=== PATIENT | male | born 1975 | race Caucasian/White ===

== ENCOUNTER 2024-05-04 12:42 | Emergency (ER) | payer BC, SELFPAY ==
[2024-05-04 12:44] VITALS: BP 202/123
[2024-05-04 13:07] VITALS: BP 186/105
[2024-05-04 13:10] LABS: Urine Albumin Trace (Neg - Trace); Urine Bilirubin 1+ (Negative); Urine Character Clear (Clear); Urine Color Yellow; Urine Glucose Negative (Negative); Urine Ketone Trace (Negative); Urine Leukocyte Trace (Negative); Urine Nitrite Negative (Negative); Urine Occult Blood 2+ (Negative); Urine Urobilinogen Negative (Neg - 1+)
--- NOTE | 2024-05-04 13:10 | ED.GENMED ---
History of Present Illness
<Dafne Diana PA-C - Last Filed: 05/04/24 19:33>
General
Chief Complaint: Flank Pain
Source: patient
Exam Limitations: none
Time Seen by Provider: 05/04/24 12:49
Nursing documentation reviewed up to this point in time: agreed with
History of Present Illness
History of Present Illness:
48-year-old male presents to the emergency department via EMS for evaluation of left flank pain. Patient states symptoms initially started 3 days ago and have been intermittent. Patient reports a sharp pain in his left lower back rating around his
left side to his left abdomen. Patient does report associated nausea but denies any episodes of vomiting. Patient has noticed some urinary frequency over the past few days but denies any hematuria or dysuria. Patient was seen in [facility]
yesterday where only lab work was performed. They did mention that his kidney function was elevated and gave him some fluids. Patient presents today due to persistent and worsening left flank pain.
Patient denies any fever, chills, chest pain, shortness of breath. Patient denies any constipation or diarrhea. Patient denies any known history of kidney stones.
Patient does have an appointment with a new primary care doctor this coming .
Review of Systems
<Dafne Diana PA-C - Last Filed: 05/04/24 19:33>
Review of Systems
Allergies reviewed?: Yes
All Other Systems: ROS reviewed and negative except as documented in HPI and ROS
Phy Exam
<Dafne Diana PA-C - Last Filed: 05/04/24 19:33>
Physical Exam
Physical Exam:
Vitals: Hypertensive on arrival, otherwise vital signs stable. Afebrile
General: Patient is well appearing, mild distress due to pain. Nontoxic-appearing
Skin: Warm and dry, no rashes or lesions
Head: Normocephalic, atraumatic
Eyes: Sclera nonicteric. EOMs intact. No nystagmus.
Throat: Protecting airway
Neck: Normal ROM, no cervical spine tenderness, no meningismus
Cardiac: Regular rate and rhythm, no murmurs.
Pulm: Normal respiratory effort, no wheezes, rales, rhonchi heard on exam.
Abdomen: Abdomen soft. Mild abdominal tenderness in left lower quadrant/left flank without any rebound tenderness or guarding. No CVA tenderness bilaterally
Extremities: No evidence of cyanosis or edema. Great distal pulses
Neuro: AAOx3. CN II-XII intact. No focal neurologic deficits.
Psychiatric: Normal affect.
Course
<Dafne Diana PA-C - Last Filed: 05/04/24 19:33>
Orders/Labs/Results
Orders:
Orders
05/04/24 12:52
Urinalysis Reflex To Culture Urgent
Date Specimen was Collected: 05/04/24
Time Specimen was Collected: 12:46
Urine Microscopic Reflex Cult Urgent
05/04/24 13:06
CMP [Comprehensive Metabolic Panel] Urgent
Complete Blood Count/With Diff Urgent
05/04/24 13:09
CT Abd/pel Without Iv Or Oral Urgent
Comment:
Reason For Exam: L flank pain, + nausea, urinary frequency
0.9% Sodium Chloride 1000 ml [Nss] 1,000 ml IV BOLUS
Ketorolac [Toradol] 15 mg IV NOW STA
Ondansetron Injectable [Zofran] 4 mg IV NOW STA
05/04/24 14:42
Tamsulosin [Flomax] 0.4 mg PO NOW STA
Abnormal Lab Results
05/04/24 05/04/24
12:52 13:06
RBC 6.21 H 10^6/uL
(4.70-6.10)
Hgb 18.2 H g/dL
(13.0-18.0)
Lymphocytes % 19.4 L %
(20.5-51.1)
BUN 21 H mg/dl
(9-20)
Creatinine 1.5 H mg/dL
(0.7-1.3)
Glucose 111 H mg/dl
(70-99)
Total Bilirubin 1.5 H mg/dl
(0.2-1.3)
ALT 83 H U/L
(0-50)
Urine Ketones Trace A
(Negative)
Ur Occult Blood Reflex 2+ A
(Negative)
Urine Bilirubin 1+ A
(Negative)
Leukocyte Esterase Rfl Trace A
(Negative)
Urine RBC 3-6 A /HPF
(0-2)
05/04/24 13:06
05/04/24 13:06
Vital Signs
Initial and Last Documented VS:
Initial Vital Signs
Temp Pulse Resp BP Pulse Ox
97.7 F 78 18 202/123 99
05/04/24 12:44 05/04/24 12:44 05/04/24 12:44 05/04/24 12:44 05/04/24 12:44
Last Documented Vital Signs
Temp Pulse Resp BP Pulse Ox
97.7 F 78 16 160/102 99
05/04/24 12:44 05/04/24 12:44 05/04/24 14:51 05/04/24 14:51 05/04/24 12:44
<Issa Peralta, DO - Last Filed: 05/04/24 22:41>
Orders/Labs/Results
Orders:
Orders
05/04/24 12:52
Urinalysis Reflex To Culture Urgent
Date Specimen was Collected: 05/04/24
Time Specimen was Collected: 12:46
Urine Microscopic Reflex Cult Urgent
05/04/24 13:06
CMP [Comprehensive Metabolic Panel] Urgent
Complete Blood Count/With Diff Urgent
05/04/24 13:09
CT Abd/pel Without Iv Or Oral Urgent
Comment:
Reason For Exam: L flank pain, + nausea, urinary frequency
0.9% Sodium Chloride 1000 ml [Nss] 1,000 ml IV BOLUS
Ketorolac [Toradol] 15 mg IV NOW STA
Ondansetron Injectable [Zofran] 4 mg IV NOW STA
05/04/24 14:42
Tamsulosin [Flomax] 0.4 mg PO NOW STA
Abnormal Lab Results
05/04/24 05/04/24
12:52 13:06
RBC 6.21 H 10^6/uL
(4.70-6.10)
Hgb 18.2 H g/dL
(13.0-18.0)
Lymphocytes % 19.4 L %
(20.5-51.1)
BUN 21 H mg/dl
(9-20)
Creatinine 1.5 H mg/dL
(0.7-1.3)
Glucose 111 H mg/dl
(70-99)
Total Bilirubin 1.5 H mg/dl
(0.2-1.3)
ALT 83 H U/L
(0-50)
Urine Ketones Trace A
(Negative)
Ur Occult Blood Reflex 2+ A
(Negative)
Urine Bilirubin 1+ A
(Negative)
Leukocyte Esterase Rfl Trace A
(Negative)
Urine RBC 3-6 A /HPF
(0-2)
05/04/24 13:06
05/04/24 13:06
Vital Signs
Initial and Last Documented VS:
Initial Vital Signs
Temp Pulse Resp BP Pulse Ox
97.7 F 78 18 202/123 99
05/04/24 12:44 05/04/24 12:44 05/04/24 12:44 05/04/24 12:44 05/04/24 12:44
Last Documented Vital Signs
Temp Pulse Resp BP Pulse Ox
97.7 F 78 16 160/102 99
05/04/24 12:44 05/04/24 12:44 05/04/24 14:51 05/04/24 14:51 05/04/24 12:44
<Dafne Diana PA-C - Last Filed: 05/04/24 19:33>
MDM/Problems Addressed
Differential Diagnosis Includes:
Not limited to: Ureteral stone, obstructing stone, ANITA, pyelonephritis, UTI, diverticulitis
MDM/Problems Addressed:
48-year-old male presenting with 3 days of left flank pain and mild nausea. No fever, chills, dysuria. No history of kidney stones in the past. Seen in different emergency department yesterday where he had lab work which showed mild renal
insufficiency although no imaging performed. Patient was discharged with instructions to stay well-hydrated. Vital signs upon arrival here show significant hypertension�although I do feel this is likely due to patient's level of discomfort. Will
recheck after pain medication. Otherwise vital signs stable, patient is afebrile. Physical exam as above. Patient is well-appearing, in mild distress due to pain although nontoxic. Patient is very mild left lower quadrant reproducible
tenderness. No CVA tenderness. Heart regular rate rhythm. Lungs clear bilaterally. Will check basic labs, urinalysis. Will obtain CT abdomen/pelvis. Symptoms consistent with likely kidney stone. Will give fluids, Toradol, Zofran. Will
closely monitor and reassess.
Following Toradol administration�patient reports almost complete resolution of pain. His blood pressure is still elevated although did come down slightly. Did discuss with patient he will follow-up with his primary care provider regarding
hypertension and further management.
Labs reviewed. Chemistry does show mild renal insufficiency with a current 1.5. Unfortunately there is no baseline for comparison. GFR 56. Fluids are running. Urine shows evidence of RBCs although no evidence to suggest infection. CT pending.
CT report does show 3 mm stone at left UVJ. Given size of stone�I did consider that elevation in creatinine may be a chronic problem. Patient is well-appearing, nontoxic. Given location and size of stone I do feel outpatient trial of stone
fashion is reasonable. He has remained without any pain following dose of Toradol. Did discuss with patient importance of having renal function rechecked�he does have a primary care appointment scheduled for this and can have it rechecked
then. Will discharge with Flomax, pain control, Zofran as needed. Urology referral given to patient. Patient comfortable with plan. All questions answered. Patient seen with attending physician.
Chronic conditions affecting care:
N/A
Acute Exacerbation and/or Progression of Chronic Illness:
N/A
<Dafne Diana PA-C - Last Filed: 05/04/24 19:33>
*Radiology
Radiology exam reviewed: preliminary read by ED provider and radiology read reviewed
*Pulse Oximetry
Patient hypoxic: no
*EKG
Interpreted by ED Provider?: NA
*Stationary Engineer Supervisor Interpretation
Rate: Stationary Engineer Supervisor- N/A
*Critical Care Note
Total Time (30-74mins, 75-104mins- exclusive of procedures): Not Applicable
ED Attending Note
<Dafne Diana PA-C - Last Filed: 05/04/24 19:33>
-
Portions of this chart may have been created with voice recognition software.� Occasional wrong word or��sound alike� substitutions may have occurred due to the inherent limitations of voice recognition software.
<Issa Peralta DO - Last Filed: 05/04/24 22:41>
ED Attending Note
Patient seen and examined by attending physician: Yes
I performed the substantive portion of visit, reviewed & personally made and approve the management plan that is documented in note by myself or LAZARA.: Yes
Discharge Plan
Departure
Patient Disposition: Home (Routine Discharge)
Date of Disposition: 05/04/24
Time of Disposition: 15:08
Patient with high blood pressure during this ER visit?: Yes
Condition: Good
Covid-19: Not Applicable
Discharge Problem:
Left ureteral calculus
Instructions: Kidney Stones (DC), BLOOD PRESSURE
Prescriptions:
New
ondansetron 4 mg tablet,disintegrating
4 mg PO Q8H PRN (Reason: nausea and vomiting) Qty: 10 0RF
tamsulosin [Flomax] 0.4 mg capsule
0.4 mg PO DAILY Qty: 14 0RF
oxycodone 5 mg tablet
5 mg PO Q6H PRN (Reason: Pain) Qty: 7 0RF
Rx Instructions:
Supervising physician: Dr. Issa Peralta [id number]
Referrals:
Juni Hess MD [Active] - Call in 1-3 days for appt
Activity Restrictions/Additional Instructions:
RETURN TO THE EMERGENCY DEPARTMENT WITH ANY FEVERS, CHILLS, SEVERE ABDOMINAL PAIN, INTRACTABLE NAUSEA, VOMITING, INTRACTABLE PAIN, ANY SIGNS OF SEVERE DEHYDRATION OR INFECTION, OR ANY OTHER CONCERNS
-As discussed�your CT scan did show evidence of a kidney stone. It is important to stay well-hydrated. You should ensure that you are straining your urine until you have passed a stone.
-You should take Motrin and/or Tylenol as needed for discomfort. For severe pain�you can take oxycodone. This may cause drowsiness and you should not take prior to driving. In addition�you should take Flomax once daily until the stone is passed.
-As discussed�your kidney function was slightly elevated on the labs obtained in the emergency department today. You should ensure that these values are rechecked within the next week to ensure they are trending down. You can have this done by
your primary care doctor with your scheduled appointment on
-Follow-up with urology for further evaluation/management
Interventions
Interventions:
*Risk Screen - Suicide Last Done: 05/04/24 12:54
*General Assessment Last Done: 05/04/24 12:54
*Neglect/Abuse Screening Last Done: 05/04/24 12:54
*ED COVID-19 Vaccine History Last Done: 05/04/24 12:54
*Nursing Disposition Last Done: 05/04/24 15:31
DD-Raxglp-Wnoppnfxqh Assessment Last Done: 05/04/24 12:54
ED-Male Genitourinary Assessment Last Done: 05/04/24 12:54
Discharge Date and Time
Discharge Date/Time: 05/04/24 15:32
Print Language: SCOTTISH
[2024-05-04] MEDS: NSS 1000 IV (13:14)
[2024-05-04] MEDS: TORADOL 15 MG IV (13:15)
[2024-05-04] MEDS: ZOFRAN 4 MG IV (13:15)
[2024-05-04 13:26] LABS: % Basophils 0.6 % (0-2); % Eosinophils 0.8 % (0-6); % Immature Granulocytes 0.4 % (0-0.5); % Lymphocytes 19.4 % (20.5-51.1); % Monocytes 6.8 % (1.7-9.3); Absolute Basophils 0.1 10^3/uL (0-0.2); Absolute Eosinophils 0.1 10^3/uL (0-0.7); Absolute Lymphocytes 1.5 10^3/uL (1.2-3.4); Absolute Monocytes 0.5 10^3/uL (0.1-0.6); Absolute Neutrophils 5.7 10^3/uL (1.4-6.5); Hematocrit 51.3 % (39.0-52.0); Hemoglobin 18.2 g/dL (13.0-18.0); Mean Corp Hgb Conc. 35.5 g/dL (33.0-37.0); Mean Corpuscular Hgb 29.3 pg (27.0-31.0); Mean Corpuscular Volume 82.6 fL (80.0-94.0); Mean Platelet Volume 9.6 fL (7.4-10.4); Nucleated Red Blood Cells % 0 % (-); Platelet Count 230 10^3/uL (130-400); Red Blood Cell Count 6.21 10^6/uL (4.70-6.10); Red Cell Dist. Width 12.5 % (11.5-14.5)
[2024-05-04 13:38] LABS: ALT (SGPT) 83 U/L (0-50); AST (SGOT) 45 U/L (17-59); Albumin 4.7 g/dl (3.5-5.0); Alkaline Phosphatase 100 U/L (38-126); Blood Urea Nitrogen 21 mg/dl (9-20); Calcium 9.6 mg/dl (8.4-10.2); Carbon Dioxide 26 mmol/L (22-30); Chloride 100 mmol/L (98-107); Glucose 111 mg/dl (70-99); Potassium 4.4 mmol/L (3.5-5.1); Sodium 136 mmol/L (135-145); Total Bilirubin 1.5 mg/dl (0.2-1.3); Total Protein 7.6 g/dl (6.3-8.2); eGFR 56.37
[2024-05-04 14:37] LABS: Urine Mucus Many
[2024-05-04 14:40] LABS: Urine Amorphous Seen; Urine White Cell 0-2 /HPF (0-5)
[2024-05-04] MEDS: FLOMAX 0.4 MG PO (14:46)
[2024-05-04 14:51] VITALS: BP 160/102
== END 2024-05-04 15:32 | disposition home or self-care (01) ==
LOC: EMR 12:42
PROVIDERS: Emergency Medicine; EMERGENCY PHYSICIAN Emergency Medicine; FAMILY PHYSICIAN Internal Medicine
DX: N20.1 Calculus of ureter (principal)
CPT/HCPCS: 99284; 96374; 96375; 96361; 74176; 80053; 81003; 81015; 85025